=== PATIENT | male | born 1945 | race Caucasian/White ===

== ENCOUNTER → 2016-05-05 | Outpatient (CLI) | payer OTHER ==
[~2016-05-05] MED LIST: ABIR1TAB PO; ACET1TAB84 PO; AMLO-110 PO; ASPI-435 PO; BETA0.1C3 EXT; DTR5 PO; ERGO1CAP35 PO; HYZ/10015 PO; LISI-725 PO; MECL1CHW4 PO; MRN/25 PO; NZRSHM EXT; ONDA8TAB6 PO; ONDA8TAB7 PO; OPTIRAY 320 IV PRN; PRD/25 PO; PRD5 PO; PRLSR20 PO; SIMV1POW PO; VLSCR15; [UNRECOGNIZED DRUG - CODE] SQ; [UNRECOGNIZED DRUG - CODE] SQ
--- NOTE | 2016-05-05 16:46 | DIAGNOSTIC IMAGING REPORT ---
CHEST CT WITH CONTRAST CT DOSE: HISTORY: Prostate cancer. TECHNIQUE: Multiaxial CT images of the chest were performed following the intravenous administration of contrast. COMPARISON: None. FINDINGS: The central airways are patent. No pleural effusions. No pneumothorax. Mild to moderate emphysema. Mild dependent changes seen at the lung bases. No focal lung consolidations or suspicious pulmonary nodules. Calcified bilateral pleural plaques. The heart is normal in size. Small hiatus hernia. Please refer to the dedicated abdomen and pelvis CT performed same day for further evaluation of the upper abdominal structures. Normal caliber thoracic aorta. The heart is normal in size. The central pulmonary arteries are patent. No mediastinal or hilar lymphadenopathy. Innumerable scattered foci of osteoblastic metastatic disease seen throughout the visualized bony structures. No pathologic fractures at this time. IMPRESSION: 1. Extensive osteoblastic metastatic disease. 2. Emphysema. 3. Calcified pleural plaques. Electronically signed by: Jordi Burks M.D. 05/05/2016 4:45 PM Dictated Date/Time: 05/05/2016 4:36 PM
--- NOTE | 2016-05-05 16:47 | DIAGNOSTIC IMAGING REPORT ---
ABDOMEN AND PELVIS CT WITH IV AND ORAL CONTRAST CT DOSE: 764.20 mGy.cm HISTORY: Prostate carcinoma 03/12/16 0810 CREA 1.10 TECHNIQUE: Multiaxial CT images of the abdomen and pelvis were performed following the use of intravenous and oral contrast. COMPARISON STUDY: 2014, 2009,. FINDINGS: Lung bases are remarkable for diaphragmatic as well as pleural calcifications. There are no basilar infiltrates. Liver demonstrates several hemangiomas. Kidneys demonstrate several right renal cyst. There is no evidence for renal hydronephrosis. Several small Nodes all less than 8 mm. Significant or bulky adenopathy is not appreciated. Bowel pattern is considered nonobstructive throughout. Findings of mild chronic sigmoid diverticulosis. Patient is status post prostatectomy. There is no significant pelvic or inguinal adenopathy. There are findings of extensive blastic metastatic change throughout the osseous structures of the spine pelvis and hips. There is also bilateral rib involvement. IMPRESSION: 1. Diffuse blastic metastatic disease throughout the axial and appendicular skeleton, progressive from prior studies at this institution. 2. Several right renal as well as hepatic cysts/hemangiomas unchanged from prior studies dating to 2009 3. Operative changes consistent with prior prostatectomy. 4. Mild chronic sigmoid diverticulosis Electronically signed by: José Luis Dooley M.D. 05/05/2016 4:46 PM Dictated Date/Time: 05/05/2016 4:40 PM
--- NOTE | 2016-05-05 18:00 | DIAGNOSTIC IMAGING REPORT ---
WHOLE BODY BONE SCAN HISTORY: Prostate carcinoma PROSTATE CA, PT TO CT AFTER PLEASE RADIOTRACER: 20.5 mCi Tc-99m MDP STUDY/IMAGES: Planar anterior and posterior whole body imaging was performed 3 hours following the intravenous administration of radiotracer. COMPARISON: 04/21/2014 FINDINGS: Interval development of rather widespread bony metastatic change. Foci of increased activity of the upper and mid thoracic spine as well as several smaller areas of low lumbar spine are noted. Patchy areas of increased activity involving the bony pelvis are present as well as the proximal right femur and mid right and to lesser extent left humeral shaft. Bilateral renal activity is present. IMPRESSION: Interval development of diffuse bony metastatic change.. This is progressive from the prior bone scan of April 21, 2014 Electronically signed by: José Luis Dooley M.D. 05/05/2016 5:59 PM Dictated Date/Time: 05/05/2016 5:54 PM
== END | disposition home or self-care (01) ==
LOC: C.NUCL 13:34
PROVIDERS: ATTEND Internal Medicine Hematology & Oncology
DX: C61 Malignant neoplasm of prostate (principal); K57.30 Diverticulosis of large intestine without perforation or abscess without bleeding

== ENCOUNTER 2016-05-28 08:38 | Emergency (ER) | payer OTHER ==
[~2016-05-28] VITALS: Ht 175.3 cm; Wt 77.6 kg
[~2016-05-28 08:38] MED LIST changes: -AMLO-110 PO; -BETA0.1C3 EXT; -LISI-725 PO; -MRN/25 PO; -NZRSHM EXT; -ONDA8TAB6 PO; -OPTIRAY 320 IV PRN
[2016-05-28 08:49] VITALS: TEMP 36.6; Ht 175.3 cm; Wt 77.6 kg
[2016-05-28] MEDS ORDERED: LISI-725 PO (09:14)
[2016-05-28] MEDS ORDERED: NZRSHM EXT (09:14)
[2016-05-28] MEDS ORDERED: AMLO-110 PO (09:14)
[2016-05-28] MEDS ORDERED: MRN/25 PO (09:15)
[2016-05-28] MEDS ORDERED: BETA0.1C3 EXT (09:18)
[2016-05-28] MEDS ORDERED: ONDA8TAB6 PO (10:06)
--- NOTE | 2016-05-28 10:38 | DIAGNOSTIC IMAGING REPORT ---
LEFT PELVIS/UNILATERAL HIP 2-3VIEWS CLINICAL HISTORY: ap pelvis, l hip pain, mval pain. Metastatic bone disease. COMPARISON: None. DISCUSSION: Findings of diffuse blastic bony metastatic deposits throughout the iliosacral regions. Potential small blastic foci and intertrochanteric regions of both hips. Minimal to very mild degenerative change of both hips. There is no evidence for soft tissue swelling. IMPRESSION: Blastic bony metastatic change throughout. Minimal to mild degenerative change of the hips. Electronically signed by: José Luis Dooley M.D. 05/28/2016 10:36 AM Dictated Date/Time: 05/28/2016 10:35 AM
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
[2016-05-28 12:05] VITALS: BP 114/73; PULSE 93; O2SAT 96
== END 2016-05-28 12:11 | disposition home or self-care (01) ==
LOC: EDBD 08:38 → C.EDB 08:39
DX: S70.02XA Contusion of left hip, initial encounter (principal); V57.5XXA Driver of pick-up truck or van injured in collision with fixed or stationary object in traffic accident, initial encounter; Y92.488 Other paved roadways as the place of occurrence of the external cause; C61 Malignant neoplasm of prostate; Z79.82 Long term (current) use of aspirin; Z79.899 Other long term (current) drug therapy

== ENCOUNTER → 2017-06-30 | Outpatient (CLI) | payer OTHER ==
[~2017-06-30] MED LIST changes: -ABIR1TAB PO; +AMLO-110 PO; +BETA0.1C3 EXT; +GADAVIST IV PRN; +LISI-725 PO; -MECL1CHW4 PO; +MRN/25 PO; +NZRSHM EXT; +ONDA-170 PO; -ONDA8TAB7 PO; +OPTIRAY 320 IV PRN; -PRD/25 PO; -PRD5 PO; -VLSCR15
--- NOTE | 2017-06-30 14:56 | DIAGNOSTIC IMAGING REPORT ---
ABD/PELVIS IV AND ORAL CONT CT DOSE: HISTORY: Prostate carcinoma CT TECHNIQUE: Multiaxial CT images of the abdomen and pelvis were performed following the use of intravenous and oral contrast. A dose lowering technique was utilized adhering to the principles of ALARA. COMPARISON STUDY: 05/05/2016 FINDINGS: Interval development of bibasilar interstitial change. Diaphragmatic as well as pleural plaques are noted and appear similar. There is trace amount pleural fluid both lung bases. Findings of diffuse bony blastic metastatic change. This is in general moderately progressive compared to the prior within the pelvis and mildly progressive within the spine and rib regions. Findings of hepatic hemangiomas and/or cysts are stable. Pancreas remains uniform. Right renal cysts are stable with no interval change. Study is considered unremarkable for interval development of mild left hydroureteronephrosis. The moderate distention of the left ureter extends to the extreme distal left ureter somewhat proximal to the left ureterovesical junction. Etiology is not clear. It potentially is secondary to mass effect from a developing soft tissue density in the left lateral pelvis measuring 3.7 cm. The bowel pattern overall is considered nonobstructive. Chronic colonic diverticulosis is again noted. Several smaller nodes in addition to the node previously described within the soft tissue pelvis are also somewhat progressive from the prior exam. IMPRESSION: 1. Interval development of a soft tissue mass left lateral pelvis measuring 3.6 cm. 2. Several additional left hemipelvic nodes are also noted. 3. Mild left hydroureteronephrosis most likely secondary to extrinsic impact upon the distal left ureter from the soft tissue mass previously described.. 4. Mildly progressive blastic bony metastatic change. 5. Interval small bilateral pleural effusions. 6. Interval nonspecific interstitial prominence both lung bases. The above report was generated using voice recognition software. It may contain grammatical, syntax or spelling errors. Electronically signed by: José Luis Dooley M.D. 06/30/2017 2:55 PM Dictated Date/Time: 06/30/2017 2:36 PM
--- NOTE | 2017-06-30 15:03 | DIAGNOSTIC IMAGING REPORT ---
CHEST CT WITH CONTRAST CT DOSE: 870.61 mGy.cm HISTORY: Prostate cancer. TECHNIQUE: Multiaxial CT images of the chest were performed following the intravenous administration of contrast. A dose lowering technique was utilized adhering to the principles of ALARA. COMPARISON: Chest CT 05/05/2016. FINDINGS: Slight progression of multiple scattered osteoblastic metastatic lesions. The central airways are patent. Trace bilateral pleural effusions. No pneumothorax. Emphysema. Multiple scattered calcified pleural plaques are again noted. Mild dependent changes seen at the lung bases. The heart remains mildly enlarged. Normal caliber thoracic aorta. The main pulmonary arteries are patent. Slight increase in size in the mediastinal and hilar lymph nodes. Dominant right anterior mediastinal lymph node measures 2.5 x 0.9 cm, previous measuring 1.7 x 0.5 cm. Distal periaortic lymph node continues to measure 1.5 cm. Interval development of left-sided hydronephrosis. This is only partially imaged. IMPRESSION: 1. Slight progression of the osteoblastic metastatic disease. 2. Stable to slight increase in size in the mediastinal and hilar lymph nodes. This may also represent progression of the metastatic disease. 3. Trace bilateral pleural effusions. 4. Left-sided hydronephrosis. 5. Emphysema. Electronically signed by: Jordi Burks M.D. 06/30/2017 3:01 PM Dictated Date/Time: 06/30/2017 2:41 PM
--- NOTE | 2017-06-30 15:39 | DIAGNOSTIC IMAGING REPORT ---
BRAIN COMBO CLINICAL HISTORY: 72 years-old Male presenting with HX OF PROSTATE CA and bone cancer, R/O BRAIN METS, recent fall. TECHNIQUE: Multisequence, multiplanar MR imaging of the brain was performed before and after the administration of intravenous contrast. IV contrast: 7.3 mL of Gadavist. COMPARISON: Bone scan from 08/24/2015 and 05/05/2016. FINDINGS: Proportional ventricular and sulcal prominence, likely age-related parenchymal volume loss. Arachnoid cyst noted at the left anterior temporal region in the middle cranial fossa. Periventricular and subcortical white matter T2/FLAIR hyperintensity, nonspecific but likely indicative of chronic small vessel ischemic change. No mass effect or midline shift. No restricted diffusion to suggest acute ischemia. No hemorrhage. No extra-axial fluid collection. T2 skull base flow voids preserved. No abnormal parenchymal enhancement. Focal T1 hypointense lesion in the left frontal portion of the calvarium, which correlates to a subtle finding on prior bone scan. Additional abnormal bone marrow signal intensity within the lateral mass and dens of C2 suggested (series 3 images 12 and 13). Mucosal thickening in the maxillary sinuses, right greater than left. IMPRESSION: 1. No acute intracranial pathology. No abnormal enhancement. No evidence of intrathoracic metastatic disease. 2. Focal abnormal bone marrow signal intensity in the left frontal calvarium and C2 vertebral body. This is nonspecific but could raise concern for osseous metastatic disease in the upper upper clinical setting. A faint lesion may have been evident in the left frontal region on prior bone scan though no activity was apparent in C2. Degenerative changes of C2 not excluded. Consider dedicated imaging of the cervical spine. The report will be called/faxed according to standard departmental protocol. Electronically signed by: Rui Tejada M.D. 06/30/2017 3:38 PM Dictated Date/Time: 06/30/2017 3:29 PM
== END | disposition home or self-care (01) ==
LOC: C.CTS 12:13
PROVIDERS: ATTEND Nurse Practitioner Family
DX: C61 Malignant neoplasm of prostate (principal); C79.51 Secondary malignant neoplasm of bone; R19.00 Intra-abdominal and pelvic swelling, mass and lump, unspecified site; J90 Pleural effusion, not elsewhere classified; N13.30 Unspecified hydronephrosis; J43.9 Emphysema, unspecified